=== PATIENT | female | born 1980 | race Two or more races ===

== ENCOUNTER 2019-05-08 11:24 | Emergency (ER) | payer MEDICAID, OTHER ==
[~2019-05-08] VITALS: Ht 162.6 cm; Wt 68.0 kg
[2019-05-08 11:51] VITALS: BP 116/75
[2019-05-08] MEDS ORDERED: SODIUM CHLORIDE 0.9% 1,000 ML IVB ONE (11:56)
[2019-05-08] MEDS ORDERED: PANTOPRAZOLE 40 MG/10 ML VIAL INJ IV STA (11:56)
[2019-05-08] MEDS ORDERED: ONDANSETRON HCL 4 MG/2 ML VIAL IV ONE (12:00)
[2019-05-08] MEDS ORDERED: MORPHINE SULFATE 4 MG/ML SYR/VIAL IV ONE (12:00)
[2019-05-08 13:26] LABS: Basophils # (auto) 0 uL; Basophils % (auto) 0.4 % (0.0-2.0); Eosinophils # (auto) 0 uL; Eosinophils % (auto) 0.5 % (0.0-7.0); Hemoglobin 9.7 g/dL (12.2-16.2); Lymphocytes # (auto) 0.6 uL; Mean Corpuscular Volume 66.1 fL (80.0-100.0); Monocytes # (auto) 0.3 uL; Neutrophils # (auto) 1.8 uL
[2019-05-08 13:29] LABS: Hematocrit 32.3 % (36.0-46.0); Lymphocytes % (auto) 23.2 % (10.0-50.0); Mean Corpuscular Hemoglobin 19.8 pg (28.0-32.0); Monocytes % (auto) 11.2 % (0.0-12.0); Neutrophils % (auto) 64.7 % (37.0-80.0); Nucleated Red Blood Cells % 0.2 %; Platelet Count (auto) 319 10^3/uL (140-450); Red Blood Cells 4.89 10^6/uL (4.0-5.20); White Blood Cell 2.8 10^3/uL (4.4-10.8)
[2019-05-08 13:36] LABS: Red Cell Distribution Width 21.5 % (11.8-14.3)
[2019-05-08 13:42] LABS: Alanine Aminotransferase 17 U/L (13-56); Albumin 3.6 g/dL (3.4-5.0); Anion Gap 7 (5-15); Aspartate Aminotransferase 16 U/L (15-37); BUN/Creatinine Ratio 12.9; Blood Urea Nitrogen 9 mg/dL (7-18); Calcium 8.2 mg/dL (8.5-10.1); Carbon Dioxide 22 mmol/L (21-32); Chloride 110 mmol/L (98-107); GFR African American 121 mL/min; GFR Non-African American 100 mL/min; Glucose 81 mg/dL (74-106); Lipase 102 U/L (73-393); Sodium 139 mmol/L (136-145)
[2019-05-08 13:45] LABS: Alkaline Phosphatase 78 U/L (45-117); Bilirubin, Total 0.2 mg/dL (0.2-1.0); Total Protein 7.9 g/dL (6.4-8.2)
== END 2019-05-08 16:31 | disposition left against medical advice (07) ==
LOC: ER 11:24
DX: R10.13 Epigastric pain (principal); R19.7 Diarrhea, unspecified; K92.0 Hematemesis; R50.9 Fever, unspecified; R09.81 Nasal congestion
CPT/HCPCS: 36415; 80053; 83690; 85025; 93005

== ENCOUNTER 2019-08-10 22:09 | Inpatient (IN) | payer MEDICAID ==
[~2019-08-10] VITALS: Ht 162.6 cm; Wt 80.6 kg
[2019-08-10] MEDS ORDERED: SODIUM CHLORIDE 0.9% 1,000 ML IV ONE (22:29)
[2019-08-10] MEDS ORDERED: ONDANSETRON HCL 4 MG/2 ML VIAL IV ONE (22:30)
[2019-08-10 23:19] LABS: Basophils # (auto) 0 10 ^3/uL (0-0.2); Eosinophils # (auto) 0.1 10 ^3/uL (0-0.8); Mean Corpuscular Hemoglobin 18.1 pg (28.0-32.0); Neutrophils # (auto) 2.7 10 ^3/uL (1.6-8.6); Red Blood Cells 3.88 10^6/uL (4.0-5.20)
[2019-08-10 23:20] LABS: Basophils % (auto) 0.2 % (0.0-2.0); Eosinophils % (auto) 1.4 % (0.0-7.0); Hematocrit 23.9 % (36.0-46.0); Lymphocytes # (auto) 1.7 10 ^3/uL (0.4-5.4); Lymphocytes % (auto) 34.2 % (10.0-50.0); Mean Corpuscular Hgb Conc. 29.4 g/dL (32.0-36.0); Mean Corpuscular Volume 61.5 fL (80.0-100.0); Monocytes # (auto) 0.6 10 ^3/uL (0-1.3); Neutrophils % (auto) 53.2 % (37.0-80.0); Nucleated Red Blood Cells % 0.1 %; Platelet Count (auto) 377 10^3/uL (140-450); Red Cell Distribution Width 19.8 % (11.8-14.3); White Blood Cell 5.1 10^3/uL (4.4-10.8)
[2019-08-10 23:24] LABS: Hemoglobin 7.1 g/dL (12.2-16.2)
[2019-08-10 23:28] LABS: INR 0.91 (0.9-1.15); Partial Thromboplastin Time 24.3 sec (23.64-32.05)
[2019-08-10 23:32] LABS: Albumin 3.1 g/dL (3.4-5.0); BUN/Creatinine Ratio 21.1; Calcium 8.3 mg/dL (8.5-10.1); Magnesium 1.9 mg/dL (1.6-2.6); Potassium 3.7 mmol/L (3.5-5.1)
[2019-08-10 23:35] LABS: Bilirubin, Total 0.2 mg/dL (0.2-1.0); Total Protein 6.4 g/dL (6.4-8.2)
[2019-08-10] MEDS ORDERED: IOHEXOL 300 MG/ML 100ML BOTTLE IJ ONE (23:41)
[2019-08-11] VITALS (10 sets, daily range): BP systolic 106–140; BP diastolic 54–82
[2019-08-11] MEDS ORDERED: MORPHINE SULFATE 4 MG/ML SYR/VIAL IV ONE (00:15)
[2019-08-11 00:31] LABS: Amylase 48 U/L (25-115); Lipase 90 U/L (73-393)
[2019-08-11 01:14] LABS: Urine Bacteria FEW /hpf (None Seen); Urine Blood Negative /uL (Negative); Urine Mucus FEW (None Seen); Urine Specific Gravity > 1.050 (1.001-1.035); Urine WBC 5 /hpf (0 - 5)
[2019-08-11] MEDS ORDERED: SODIUM CHLORIDE 0.9% 1,000 ML IV ONE (01:15)
[2019-08-11] MEDS ORDERED: PANTOPRAZOLE 40 MG/10 ML VIAL INJ IV ONE (01:15)
[2019-08-11] MEDS ORDERED: PANTOPRAZOLE 40mg/50ML NS AE 50 ML IV ONE (01:15)
[2019-08-11] MEDS ORDERED: HYDROmorphone HCL 2 MG/ML VL IV ONE (01:45)
[2019-08-11] MEDS ORDERED: MORPHINE SULFATE 4 MG/ML SYR/VIAL IV PRN (03:15)
[2019-08-11] MEDS: D5W/SOD CHLO 0.9% 1,000 ML IV SCH ×2 (03:32→16:35)
[2019-08-11 04:13] LABS: Hematocrit 21.6 % (36.0-46.0)
[2019-08-11 04:15] LABS: Hemoglobin 6.4 g/dL (12.2-16.2)
[2019-08-11 04:44] LABS: % Iron Saturation 1.1 % (15-50); Iron < 5 ug/dL (50-170); Total Iron Binding Capacity 441 ug/dL (250-450)
[2019-08-11] MEDS: ONDANSETRON HCL 4 MG/2 ML VIAL IV PRN ×2 (05:08→18:05)
[2019-08-11] MEDS: PANTOPRAZOLE 40 MG/10 ML VIAL INJ IV SCH ×2 (05:12→22:03)
--- NOTE | 2019-08-11 05:41 | NUR ---
Admit from [facility] admitted to Telemetry unit. Patient oriented to Frances Dailey RN primary RN, unit, room, bed, and unit policies regarding patient care and visiting hours. Patient placed on bedside oxygen, weighed by bedscale and encouraged to call if they need something. All questions and concerns addressed, patient verbalized understanding. Note:
--- NOTE | 2019-08-11 06:12 | NUR ---
Consents for blood signed by hospitalist, informed of pt request for dilaudid states morphine does not work well for her. No new orders received continue current medication, pt informed
[2019-08-11] MEDS ORDERED: MORPHINE SULF INJ 2 MG/ML SYRINGE 1ML IV PRN ×2 (07:15→13:45)
--- NOTE | 2019-08-11 08:20 | NUR ---
Spoke with Dr. Mesha Zhang over the phone regarding patients consult. She stated she plans on an EGD today after the patients blood transfusion. Will obtain consent and do OR checklist.
--- NOTE | 2019-08-11 09:29 | NUR ---
Started blood transfusion. Patients vitals all WNL. Patient states she has had a blood transfusion before without any reactions. Will monitor for any changes in condition.
[2019-08-11] MEDS ORDERED: fentaNYL CITRATE 100 MCG/2 ML VL ONE (09:34)
[2019-08-11] MEDS ORDERED: QUET300T14 PO (09:34)
[2019-08-11] MEDS ORDERED: LIDOCAINE VISCOUS 2% 15ML UD ONE (09:34)
[2019-08-11] MEDS ORDERED: SODIUM CHLORIDE LOCK 10 ML ONE (09:34)
[2019-08-11] MEDS ORDERED: MIDAZOLAM HCL 5 MG/ML-1ML VIAL ONE (09:34)
[2019-08-11] MEDS ORDERED: ALPR1TAB2 PO (09:35)
--- NOTE | 2019-08-11 11:30 | NUR ---
Brought patient to pre op for EGD. Patients blood is still running at this time.
[2019-08-11] MEDS: diphenhdrAMINE HCL 50 MG/1 ML VL ONE ×2 (11:52→11:54)
--- NOTE | 2019-08-11 12:50 | NUR ---
Received report from PACU
[2019-08-11] MEDS: HYDROmorphone HCL 2 MG/ML VL IV PRN ×2 (16:20→23:07)
[2019-08-11] MEDS: FERROUS SULFATE 300 MG/5 ML ORAL LIQ PO SCH ×2 (17:41→22:00)
[2019-08-11] MEDS: SUCRALFATE 1 GM/10 ML ORAL SUSP PO SCH ×2 (17:42→22:00)
[2019-08-11] MEDS ORDERED: FERROUS SULFATE 325 MG TAB PO SCH (18:00)
--- NOTE | 2019-08-11 19:15 | NUR ---
Opening Shift Note Assumed care of patient, awake and alert. No S/S of distress/SOB or pain. Safety measures in place bed in lowest position, side rails x2 up and call light within reach. Instructed on POC and to call for assist PRN, will continue to monitor for changes Q1hr and PRN.
--- NOTE | 2019-08-11 22:00 | NUR ---
Patient refusing carafate and iron. Patient states " I threw up earlier when given the iron, and I don't want to throw up now". Educated patient that the iron would be added to orange juice to help mask the taste, patient refused. Patient educated and the risk and benefits; patient verbalized understanding.
[2019-08-12] MEDS: HYDROmorphone HCL 2 MG/ML VL IV PRN ×6 (02:16→22:47)
[2019-08-12] MEDS: D5W/SOD CHLO 0.9% 1,000 ML IV SCH ×2 (02:24→17:47)
[2019-08-12] MEDS: ONDANSETRON HCL 4 MG/2 ML VIAL IV PRN (02:24)
[2019-08-12] MEDS: SUCRALFATE 1 GM/10 ML ORAL SUSP PO SCH ×4 (03:26→22:42)
[2019-08-12 05:00] VITALS: BP 127/62
[2019-08-12] MEDS: FERROUS SULFATE 300 MG/5 ML ORAL LIQ PO SCH ×3 (05:57→22:00)
--- NOTE | 2019-08-12 06:49 | NUR ---
Patient refused iron. Patient educated on risk and benefits, patient verbalized understanding. Will continue to monitor.
--- NOTE | 2019-08-12 08:00 | NUR ---
IV removal IV DC'd with clean sterile technique, catheter fully intact. Pressure dressing applied to site. Patient tolerated well. NOTE: LEFT UPPER ARM IV DC'd DUE TO NON PATENT AND REDDENED.
[2019-08-12 08:28] LABS: Basophils # (auto) 0 10 ^3/uL (0-0.2); Eosinophils # (auto) 0.1 10 ^3/uL (0-0.8); Monocytes # (auto) 0.4 10 ^3/uL (0-1.3); Platelet Count (auto) 362 10^3/uL (140-450)
[2019-08-12 08:30] LABS: Basophils % (auto) 0.6 % (0.0-2.0); Eosinophils % (auto) 1.1 % (0.0-7.0); Hematocrit 34.8 % (36.0-46.0); Hemoglobin 10.7 g/dL (12.2-16.2); Lymphocytes # (auto) 1.1 10 ^3/uL (0.4-5.4); Lymphocytes % (auto) 22.9 % (10.0-50.0); Mean Corpuscular Hemoglobin 19.9 pg (28.0-32.0); Mean Corpuscular Hgb Conc. 30.7 g/dL (32.0-36.0); Neutrophils # (auto) 3.3 10 ^3/uL (1.6-8.6); Neutrophils % (auto) 66.4 % (37.0-80.0); Nucleated Red Blood Cells % 0.2 %; Red Blood Cells 5.36 10^6/uL (4.0-5.20); White Blood Cell 4.9 10^3/uL (4.4-10.8)
[2019-08-12 08:39] LABS: Red Cell Distribution Width 23.8 % (11.8-14.3)
[2019-08-12 08:50] LABS: Albumin 3.9 g/dL (3.4-5.0); Calcium 9.1 mg/dL (8.5-10.1); Potassium 3.8 mmol/L (3.5-5.1)
[2019-08-12 08:54] LABS: BUN/Creatinine Ratio 10.3; Bilirubin, Total 0.6 mg/dL (0.2-1.0); Total Protein 8.4 g/dL (6.4-8.2)
[2019-08-12 09:00] VITALS: BP 128/79
[2019-08-12] MEDS: PANTOPRAZOLE 40 MG/10 ML VIAL INJ IV SCH ×2 (09:20→22:36)
--- NOTE | 2019-08-12 09:30 | NUR ---
PAIN PATIENT VERBALIZES ABDOMINAL PAIN, NON RADIATING AND A 10/10. PATIENT REQUEST PAIN MEDICATION IS ONLY RELIEF, PRE PATIENT. WILL ASSESS AND MEDICATE PER ORDER. WILL CONTINUE TO MONITOR.
--- NOTE | 2019-08-12 10:30 | NUR ---
RE PAIN: PATIENT STATES NO RELIEF OF PAIN, CONTINUES TO RATE PAIN 10/10. NO ADDITIONAL PRN DUE AT THIS TIME. PATIENT PROVIDED WITH HEAT PACK AND INTRODUCED TO [employer]ESS RELIEVING [employer]ACTICES. WILL CONTINUE TO MONITOR.
[2019-08-12 13:00] VITALS: BP 122/77
--- NOTE | 2019-08-12 13:21 | NUR ---
CALL FROM DR Ren GARLAND DR UPDATED ON PATIENTS STATUS NEW ORDERS RECEIVED VIA TELEPHONE, READ BACK AND VERIFIED. WILL IMPLEMENT.
[2019-08-12] MEDS ORDERED: HYDROmorphone HCL 2 MG/ML VL IV ONE (13:30)
--- NOTE | 2019-08-12 13:40 | NUR ---
RE PAIN PATIENT STATES DECREASE IN PAIN POST HAIR TINTER. NOW STATES PAIN LEVEL 7/10. WHICH IS TOLERABLE TO PATIENT. PATIENT CONTINUED TO BE ENCOURAGED TO REST. WILL CONT TO MONITOR.
[2019-08-12] MEDS: PROMETHAZINE HCL 25 MG/ML 1ML IV PRN ×2 (13:43→20:18)
--- NOTE | 2019-08-12 14:10 | NUR ---
MD LAW AT BED SIDE DISCUSSING POC WITH PATIENT. PATIENT VERBALIZES UNDERSTANDING. NEW ORDERS RECEIVED. WILL IMPLEMENT.
[2019-08-12] MEDS ORDERED: ALPRAZolam 0.5 MG TAB PO PRN (14:15)
--- NOTE | 2019-08-12 15:00 | NUR ---
IV removal IV DC'd with clean sterile technique, catheter fully intact. Pressure dressing applied to site. Patient tolerated well. NOTE: RIGHT WRIST IV INFILTRATED, FLUIDS STOPPED IMMEDIATELY AND HEAT PACK APPLIED.
--- NOTE | 2019-08-12 15:40 | NUR ---
PAIN PATIENT VERBALIZES ABDOMINAL PAIN, NON RADIATING AND A 10/10. PATIENT REQUEST PAIN MEDICATION IS ONLY RELIEF, PRE PATIENT. WILL ASSESS AND MEDICATE ONE TIME DOSE OF DILAUDID 1MG PER ORDER. WILL CONTINUE TO MONITOR.
--- NOTE | 2019-08-12 16:40 | NUR ---
RE PAIN PATIENT VERBALIZES SIGNIFICANT RELIEF IN PAIN AND NOW RATES IT A 4/10. PATIENT RESTING COMFORTABLY IN BED. NO FURTHER INTERVENTIONS NEEDED AT THIS TIME. WILL CONTINUE TO MONITOR.
[2019-08-12 17:00] VITALS: BP 132/61
--- NOTE | 2019-08-12 19:23 | NUR ---
Pain reassessed. Patient states pain is 7/10. Patient is lying in bed, free of distress. Patient's pain goal is 7/10. Will continue to monitor.
--- NOTE | 2019-08-12 19:25 | NUR ---
Opening Shift Note Assumed care of patient, awake and alert. No S/S of distress/SOB or pain. Safety measures in place bed in lowest position, side rails x2, and call lights within reach. Instructed on POC and to call for assist PRN, will continue to monitor for changes Q1hr and PRN.
[2019-08-12 22:00] VITALS: BP 137/69
[2019-08-12] MEDS: DOCUSATE SOD 100 MG CAP PO SCH (22:42)
[2019-08-13] MEDS: HYDROmorphone HCL 2 MG/ML VL IV PRN ×2 (04:17→08:50)
[2019-08-13 05:41] VITALS: BP 111/68
[2019-08-13] MEDS: FERROUS SULFATE 300 MG/5 ML ORAL LIQ PO SCH ×2 (06:00→14:00)
--- NOTE | 2019-08-13 07:15 | NUR ---
Opening Shift Note Assumed care of patient, awake and alert. No S/S of distress/SOB or pain. Instructed on POC and to call for assist PRN, will continue to monitor for changes Q1hr and PRN. Fall precautions in place per safety protocol.
[2019-08-13 07:30] LABS: Basophils # (auto) 0 10 ^3/uL (0-0.2); Eosinophils # (auto) 0.1 10 ^3/uL (0-0.8); Hemoglobin 8.4 g/dL (12.2-16.2); Lymphocytes # (auto) 1.1 10 ^3/uL (0.4-5.4); Monocytes # (auto) 0.5 10 ^3/uL (0-1.3); Nucleated Red Blood Cells % 0.1 %
[2019-08-13 07:32] LABS: Basophils % (auto) 0.3 % (0.0-2.0); Eosinophils % (auto) 3.6 % (0.0-7.0); Hematocrit 26.9 % (36.0-46.0); Lymphocytes % (auto) 26.7 % (10.0-50.0); Mean Corpuscular Hemoglobin 19.9 pg (28.0-32.0); Mean Corpuscular Hgb Conc. 31.2 g/dL (32.0-36.0); Mean Corpuscular Volume 63.8 fL (80.0-100.0); Monocytes % (auto) 11.8 % (0.0-12.0); Neutrophils # (auto) 2.3 10 ^3/uL (1.6-8.6); Neutrophils % (auto) 57.6 % (37.0-80.0); Platelet Count (auto) 326 10^3/uL (140-450); Red Blood Cells 4.21 10^6/uL (4.0-5.20)
[2019-08-13 07:41] LABS: Red Cell Distribution Width 24.5 % (11.8-14.3)
[2019-08-13 07:57] LABS: Calcium 8.2 mg/dL (8.5-10.1); Magnesium 2.2 mg/dL (1.6-2.6); Potassium 3.7 mmol/L (3.5-5.1)
[2019-08-13 07:58] LABS: BUN/Creatinine Ratio 11.4
[2019-08-13] MEDS: D5W/SOD CHLO 0.9% 1,000 ML IV SCH (08:35)
[2019-08-13] MEDS: PROMETHAZINE HCL 25 MG/ML 1ML IV PRN (08:50)
[2019-08-13] MEDS: SUCRALFATE 1 GM/10 ML ORAL SUSP PO SCH ×2 (08:50→11:30)
[2019-08-13 09:00] VITALS: BP 134/87
[2019-08-13] MEDS: PANTOPRAZOLE 40 MG/10 ML VIAL INJ IV SCH (09:57)
[2019-08-13] MEDS: DOCUSATE SOD 100 MG CAP PO SCH (10:00)
[2019-08-13 13:00] VITALS: BP 139/74
[2019-08-13 14:10] VITALS: BP 139/74
--- NOTE | 2019-08-13 14:38 | NUR ---
Discharge instructions given as ordered. Encourage to follow up with PMD as instructed. All questions and concerns addressed. Patient verbalized understanding. Medication reconciliation form completed and copy given to patient. IV removed with catheter intact, pressure dressing applied. Patient taken to vehicle via wheelchair with all personal belongings, accompanied by staff. No distress noted at time of departure.
== END 2019-08-13 14:36 | disposition home or self-care (01) | DRG 241 ==
LOC: ER 22:09 → OVERFLOW 22:10 → EAST 08-11 05:57
PROVIDERS: ADMIT Nurse Practitioner; ATTEND Internal Medicine
PROC: 0DB88ZX Excision of Small Intestine, Via Natural or Artificial Opening Endoscopic, Diagnostic (ICD-10-PCS; 2019-08-11)
PROC: 30233N1 Transfusion of Nonautologous Red Blood Cells into Peripheral Vein, Percutaneous Approach (ICD-10-PCS; 2019-08-11)
PROC: 0DB68ZX Excision of Stomach, Via Natural or Artificial Opening Endoscopic, Diagnostic (ICD-10-PCS; principal; 2019-08-11 11:47)
DX: K29.71 Gastritis, unspecified, with bleeding (principal); E87.2 Acidosis; D50.9 Iron deficiency anemia, unspecified; K59.00 Constipation, unspecified; K44.9 Diaphragmatic hernia without obstruction or gangrene; Z90.49 Acquired absence of other specified parts of digestive tract; R52 Pain, unspecified
CPT/HCPCS: 36415; 43239; 71045; 74177; 80048; 80053; 81001; 82150; 83540; 83550; 83605; 83690; 83735; 84484; 84702; 85014; 85018; 85025; 85610; 85730; 86850; 86900; 86901; 86920; 93005; 96374; 96375; 96376; 99291; C9113; G0378; J2250; J2405; J7042